=== PATIENT | female | born 1980 | race Caucasian/White ===

== ENCOUNTER 2018-08-15 07:15 | Emergency (ER) | payer OTHER ==
[~2018-08-15] VITALS: Ht 170.2 cm; Wt 65.9 kg
[2018-08-15] MEDS ORDERED: TRAM50TA2 PO (07:21)
[2018-08-15] MEDS ORDERED: CYCL10TA PO (07:21)
[2018-08-15] MEDS ORDERED: ZOMI5TAB12 PO (07:21)
[2018-08-15] MEDS ORDERED: BACLOFEN 10 MG TAB PO ONE (07:45)
[2018-08-15] MEDS ORDERED: diphenhydrAMINE INJ 50MG/ML VIAL (J1200) IV ONE (07:45)
[2018-08-15] MEDS ORDERED: KETOROLAC 30 MG/ML VIAL (J1885) IM ONE (07:45)
[2018-08-15] MEDS ORDERED: METOCLOPRAMIDE INJ 10MG/2ML VIAL (J2765) IV ONE (07:45)
[2018-08-15] MEDS ORDERED: KETOROLAC 30 MG/ML VIAL (J1885) IV ONE (08:15)
[2018-08-15] MEDS ORDERED: NS 1,000 ML IV ONE (08:15)
[2018-08-15 09:58] VITALS: BP 112/71
== END 2018-08-15 10:01 | disposition home or self-care (01) ==
LOC: M ED 07:15
DX: G43.709 Chronic migraine without aura, not intractable, without status migrainosus (principal); R11.0 Nausea; M62.838 Other muscle spasm; M50.221 Other cervical disc displacement at C4-C5 level; M50.222 Other cervical disc displacement at C5-C6 level; Z87.891 Personal history of nicotine dependence; Z88.0 Allergy status to penicillin; Z88.5 Allergy status to narcotic agent; Z79.899 Other long term (current) drug therapy
CPT/HCPCS: 96361; 96374; 96375; 99284; J1200; J1885; J2765

== ENCOUNTER 2018-08-18 09:09 | Emergency (ER) | payer OTHER ==
[~2018-08-18] VITALS: Ht 170.2 cm; Wt 65.9 kg
[~2018-08-18 09:09] MED LIST: CYCL10TA PO; TRAM50TA2 PO; ZOMI5TAB12 PO
[2018-08-18] MEDS ORDERED: ACET-908 PO (09:14)
[2018-08-18] MEDS ORDERED: AFRI0.058 (09:44)
[2018-08-18] MEDS ORDERED: REGL10TA6 PO (09:44)
[2018-08-18] MEDS ORDERED: ZITHTAB PO (09:44)
[2018-08-18] MEDS ORDERED: KETOROLAC 60 MG/2 ML VIAL (J1885) IM ONE (09:45)
[2018-08-18] MEDS ORDERED: CLAR10CA3 PO (09:45)
[2018-08-18] MEDS ORDERED: METOCLOPRAMIDE 10 MG TAB PO ONE (09:45)
[2018-08-18] MEDS ORDERED: ONDANSETRON 4 MG ORAL DISINTEGRATING TAB (Q0162 PER 1MG) PO ONE (09:45)
[2018-08-18] MEDS ORDERED: diphenhydrAMINE 50 MG CAP PO ONE (09:45)
[2018-08-18] MEDS ORDERED: AZITHROMYCIN 250 MG TAB PO ONE (09:45)
[2018-08-18] MEDS ORDERED: diazePAM 10 MG TAB PO ONE (09:45)
[2018-08-18] MEDS ORDERED: CYCL10TA PO (10:28)
[2018-08-18] MEDS ORDERED: predniSONE 20 MG TAB PO ONE (10:30)
[2018-08-18 11:10] VITALS: BP 102/62
== END 2018-08-18 11:12 | disposition home or self-care (01) ==
LOC: M ED 09:09
DX: R51 Headache (principal); H66.93 Otitis media, unspecified, bilateral; M54.2 Cervicalgia; R11.0 Nausea
CPT/HCPCS: 96372; 99283; J1885; Q0162